=== PATIENT | male | born 1985 | race Caucasian/White ===

== ENCOUNTER 2025-06-28 13:44 | Emergency (ER) | payer MEDICAID, SELFPAY ==
[2025-06-28 13:52] VITALS: BP 139/86; PULSE 79; TEMP 36.8; O2SAT 96; BMI 35.9
--- OUTSIDE RECORDS SUMMARY | 2025-06-28 13:55 | XMS_ITS | Continuity of Care Document ---
Author Organization [place] - Rashaun Urena [facility] Torri Paris, [facility] ([facility]) Address [address] [place] [address] Assessment Encounter Date Assessment Date Assessment LastModified by Organization Details LastModified Time 06/23/2025 06/23/2025 39-year-old male with a history of epilepsy presents with left shoulder pain and arm numbness. The patient reports a previous injury leading to left acromioclavicular joint separation, complicated by C4 cervical changes. Initial therapy resulted in transient relief, indicating the need for MRI evaluation to assess underlying conditions. [email or web address] Not available 06/23/2025 12:24:50 Plan of Treatment Reminders Order Date Submit Date Provider Last Modified By Organization Details Last Modified Time Details Appointments None recorded. Lab None recorded. Referral None recorded. Procedures None recorded. Surgeries None recorded. Imaging MRI, shoulder, w/o contrast 2024 025 [email or web address] 2 [facility], [address] [place] [address], [address], 13:46:58 MRI, cervical spine, w/o contrast 2024 025 [email or web address] 2 [facility], [address] [place], [address], 13:46:58 Medication Orders None recorded. Patient TargetsNo targets recorded. Patient Instructions Encounter Date Encounter Id Patient Instructions Last Modified By Organization Details Last Modified Time 06/23/2025 [id number] - Avoid lifting heavy objects and strenuous activity with the left arm. - Use heat therapy for shoulder pain as needed. - Continue shoulder exercises and avoid overhead activities. - Take all prescribed epilepsy medications as directed and follow up with neurologist as scheduled. - Continue taking Crestor daily and maintain a diet low in fat and high in fiber. - Report any significant changes in symptoms or new events immediately. [email or web address] Not available 06/23/2025 12:24:52 During the visit , I confirmed the necessity of MRI imaging to evaluate both cervical and shoulder conditions due to current symptom persistence and incomplete relief from prior physical therapy. I addressed the patient's seizure condition, noting control under medication, with a need for continuous monitoring. We discussed potential stressors linked to his previous environment that may have influenced his health, ensuring that lifestyle modifications are ongoing. Regarding hyperlipidemia, I reiterated the importance of continuing rosuvastatin and maintaining a heart-healthy diet, alongside plans for subsequent lipid panel evaluations. The various conditions require diligent management and follow-up, for which the appropriate referrals and imaging have been outlined and will be coordinated accordingly. [email or web address] Not available 06/23/2025 12:24:53 Reason for Referral None Reported. Problems Name Problem SNOMED Code Status Onset Date Resolution Date Notes Provider Name and Address Organization Details Recorded Time Pain of left shoulder region Active 2024 Lisette hernandez [facility] 11:39:46 Cigarette smoker 53692073 Active 2024 Lisette hernandez [facility] 11:41:43 History of alcoholism 056168146 Active 2024 Lisette hernandez [facility] 11:42:14 Left cervical root neuropathy 3175416659327 9106 Active 2024 Yaw Cardona MD [address] [place] [address], [phone], [facility], L.L.CKarissa 12:17:34 Pain of left shoulder joint 7357864179053 9109 Active 2024 Yaw Cardona MD [address] [place] [address], [phone], [facility], Christie.L.C. 12:17:55 Tendinitis of left rotator cuff 8804113904927 9101 Active 2024 Yaw Cardona MD [address] [place] [address], [address], [facility], LKarissaL.CKarissa 12:18:09 Dislocation of acromioclav icular joint 176920306 Active 2024 Yaw Cardona MD [address] [place], [address], [facility], RichardL.CKarissa 12:18:34 Problem Notes None recorded. Procedures Surgical History Date Name Laterality Status Provider Name and Address Organization Details Recorded Time surgical procedure completed Lisette guerra [facility], RichardL.CKarissa 06/23/2025 11:43:22 arthroscopy of knee completed Lisette beltran [facility], L.L.CKarissa 06/23/2025 11:43:52 Carpal Tunnel Surgery completed Lisette Suarez [facility] L.L.CK[facility]issa 06/23/2025 11:44:07 Hemorrhoidectomy completed Lisette Suarez [facility] L.L.CK[facility]issa 06/23/2025 11:44:19 Imaging Results None recorded. Procedure Notes None recorded. Medical Equipment None Reported. Allergies Allergen ID Allergen Name Allergen Category Reaction Reaction Severity Criticality Documentation Date Start Date Code Code System Note Provider Name and Address Organization Details Recorded Time 05607 Keppra medicatio n Not available Not available Not available 06/23/2025 91236 7 RxNorm Lisette hernandez [facility], RichardLKarissaCKarissa 11:35:54 21699 acetamino phen / oxycodone medicatio n Not available Not available Not available 06/23/2025 79704 3 RxNorm [facility] 11:36:12 74027 oxycodone medicatio n Not available Not available Not available 06/23/2025 7804 RxNorm Lisette hernandez [facility] 11:36:22 Medications Name Sig Start Date Stop Date Status Note LastModified by Organization Details LastModified Time Epi E-Z Pen 0.3 mg/0.3 mL injection , auto-inje ctor Take by injectio n route. active for allergy to wasps and bees Not Available Not Available Not Available Lamictal 25 mg tablet Take 1 tablet twice a day by oral route. active Not Available Not Available No t Available naproxen 500 mg tablet Take 1 tablet twice a day by oral route as needed. active Not Available Not Available No t Available Robaxin 750 mg tablet Take 2 tablets 3 times a day by oral route. active Not Available Not Available No t Available Epi E-Z Pen Jr 1:2000 injection syringe Take by injectio n route. 06/23 completed allergy to bees and wasps Not Available Not Available Not Available rosuvasta tin 5 mg tablet Take 1 tablet every day by oral route. active Not Available Not Available No t Available gabapenti n 100 mg tablet Take 1 tablet 3 times a day by oral route. active Not Available Not Available No t Available tramadol active Not Available Not Avai lable Not Available Vitals Date Recorded Body height Body mass index (BMI) Body weight Oxygen saturation Oxygen saturation in Arterial blood by Pulse oximetry Heart rate Respiratory rate Body temperature Systolic And Diastolic Provider Name and Address Organization Details Last Updated DateTime 187.96 cm 35.9 kg/m2 737558. 86 g 98 % 98 % 74 /min 18 /min 97.3 [degF] 124/74 mm[Hg] Lisette Suarez [facility] 11:31:58 Social History Question Answer Notes LastModified by Organizat ion Details LastModified Time Tobacco Smoking Status Current Every Day Smoker Lisette hernandez [facility] 06/23/2025 11:41:28 At What Age Did You Start Smoking Tobacco? 16 [email or web address] Information not available 06/23/2025 How Much Tobacco Do You Smoke? 0.5 PPD [email or web address] Information not available 06/23/2025 Sex: Unknown Functional Status None recorded. Mental Status None recorded. Family History Relationship Description Onset Age of this Age Resolved Age Notes LastModified by Organization Details LastModified Time Mother Diabetes mellitus [email or web address] Not available 03/2025 12:04:57 Mother Cerebrovascu lar accident [email or web address] Not available 1 12:05:21 Mother Infundibulop elvic stenosis multicystic kidney syndrome heredi ty in women in the family [email or web address] Not available 06/23/2025 12:07:12 Father Malignant neoplasm of urinary bladder [email or web address] Not available 03/2025 12:05:38 Paternal Grandmother Malignant neoplasm of breast [email or web address] Not available 03/2025 12:07:39 Paternal Grandfather Hypertensive disorder [id number] Not available 03/2025 12:07:57 Medical History Condition Response Coronary Artery Disease N Other N Gout N Kidney Stones N Blood Diseases N Hyperthyroidism N Breast Cancer N Blood Transfusion N COPD N Depression Y Lung Disease N Hypothyroidism N Defects or Inherited Disease N Developmental or Behavioral Disorders N Breast Problem N Difficulty Swallowing N Anesthesia Complications N Meniere's disease N Anxiety Disorder N Muscle, Joint, or Bone Problems N Vision or Eye Problems N Arthritis N Polyps N Infertility N Cancer N Varicosities N Stroke N Endometriosis N Bladder or Kidney Problems N High Cholesterol N Liver Disease N Fibromyalgia N Headaches Y Kidney Disease N Allergies/Hayfever N Heart Problems N Ear or Hearing Problems N Fatigue N Hospitalizations N Thyroid Problems N GI Problems N ADD/ADHD Y Skin Problems N Eating Disorder N Anemia N Constipation N Mental Illness N Ovarian Cancer N Diabetes N Bedwetting N Seizures/Epilepsy Y Tuberculosis N Pain Y Eczema N Diverticulitis N Abuse/Domestic Violence N Asthma N Reflux/GERD N Hepatitis N Heart Disease N Pulmonary Embolism N Pre-Eclampsia N Hypertension N Chronic Ear Infections N Osteoporosis Y Chicken Pox N Autism Spectrum Disorder (ASD) N Thrombophilias N Immunizations Vaccine Type Date Status Note Provider Nam e and Address Organization Details Recorded Time Hep B, unspecified formulation 0 completed Not Available [facility] 06/23/2025 11:25:57 Td (adult), 2 Lf tetanus toxoid, preservative free, adsorbed 0 completed Not Available [facility] 06/23/2025 11:25:57 Hep B, unspecified formulation 3 completed Not Available [facility] 06/23/2025 11:25:57 Influenza, split virus, trivalent, PF 2 completed Not Available [facility] 06/23/2025 11:25:57 Influenza, split virus, trivalent, preservative 3 completed Not Available [facility] 06/23/2025 11:25:57 Td (adult), 5 Lf tetanus toxoid, preservative free, adsorbed 4 completed Not Available [facility] 06/23/2025 11:25:57 Hep A, adult 9 completed Not Available [facility] 06/23/2025 11:25:57 Influenza, split virus, quadrivalent, preservative 9 completed Not Available [facility] 06/23/2025 11:25:57 Influenza, split virus, trivalent, preservative 4 completed Not Available [facility] 06/23/2025 11:25:57 Tdap 5 completed Not Available [facility] 06/23/2025 11:25:57 Past Encounters Encounter ID Performer Location Encounter Start Date Encounter Closed Date Diagnosis/Indication Diagnosis SNOMED-CT Code Diagnosis ICD10 Code Diagnosis IMO Codes Diagnosis Note [id number] Yaw Cardona MD [facility] ([facility]) [address] [place] [address] 06/23/2025 11:21:02 06/23/2025 12:58:29 Left cervical root neuropathy 7666566986 8994215 M54.12 82101149 - Plan for MRI imaging.- Adjust treatment or surgery if needed pending MRI results.- Educate on activity limitation s. Tendinitis of left rotator cuff 9803611490 2830705 M75.82 80237667 - MRI planned for further assessment since no improvemen t after 6 weeks of PT Dislocatio n of acromioclavicular joint 199579899 S43.102A 35430322 - Document AC joint separation in imaging. - Activity restrictio ns. - Plan MRI for further assessment . Epilepsy 01916824 G40.90 9 - Ensure medication compliance . - Neurologis t follow-up. - Monitor for stress triggers. Hyperlipidemia 02147211 E78.5 - Maintain statin therapy. - Re-check lipids in future. Health Concerns Section Related Observation LastModified by Organization Detai ls LastModified Time None Recorded Concern Status LastModified by Organization Details LastModified Time None Recorded Payers Encounter Date Sequence Insurance Name Policy Number Policy Phan Covered Member ID Phan Member ID Guarantor Name 06/23/2025 1 [facility] ([place]PLAC[place] - [place]MO[place] KENDY Macias [id number] Rony Macias Notes Date Note Type Note Provider Name and Address Organization Details Recorded Time 5 text/html Annual WellnessReported by PatientSocial/Behavioral HistoryFor diet and nutrition, patient reportshigh caloric intake. For additional lifestyle factors, patient reportstobacco use(young hx of alcohol abuse). For physical activity, patient reportsrecent increase in physical activityandgood physical condition. For fracture risk, (left collar bone, leftankle).Mental Status:For depression risk, patient reportsfeels sad, empty, or tearful,sleep disturbances or insomnia,agitated,loss of energy, andhistory of depressionbut reportsno loss of interest in activities,no significant changes in weight,no feelings of worthlessness or guilt, andno thoughts of suicide.ROS as noted in the HPI The patient is a 39-year-old male presenting with left shoulder pain and a history of separation at the AC joint. He describes a specific incident leading to injury and subsequent pain, characterized as sharp, which began while participating in physically demanding activities. Initial imaging confirmed a 1 cm separation of the left shoulder's AC joint. The patient pursued physical therapy aimed at addressing suspected nerve impingement, yet reports limited and transient relief, with numbness presenting upon certain arm maneuvers. The patient completed 6 weeks of therapy and still remained symptomatic. Further complicating his musculoskeletal presentation are imaging findings suggestive of C4 apex bone anomalies, potentially implicating cervical radiculopathy. The patient expresses a need for MRI diagnostics to better visualize the cervical and shoulder regions for ongoing management, yet faces insurance hurdles. His epilepsy, linked to a childhood fall, remains under medication management, with recent seizure activity. He also manages hypercholesterolemia with dietary modification and statins, achieving stable results. - Imaging: X-ray of the left shoulder indicates separation at the AC joint, approximately 1 cm, and radiographic evidence of C4 apex bone spurs. Yaw Cardona MD [address] [place] [address], [phone], [facility], Torri 06/23/2025 12:56:35
--- OUTSIDE RECORDS SUMMARY | 2025-06-28 13:55 | XMS_ITS | Data Portability ---
Author Organization [place] - Rashaun Urena [facility] Torri Paris, [facility] Address [address] [facility] [address] [place] [address] Assessment Encounter Date Assessment Date Assessment LastModified [...] shoulder, w/o contrast 2024 025 [email or web address] 2 [facility], [address] [place] [address], [address], 13:46:58 MRI, cervical spine, w/o contrast 2024 025 [email or web address] 2 [facility], [address] [place], [address], 13:46:58 Medication Orders None recorded. Patient TargetsNo targets recorded. Patient Instructions Encounter Date Encounter Id Patient Instructions Last Modified By Organization Details Last Modified Time 06/23/2025 [id number] - Avoid lifting heavy objects and strenuous [...] left shoulder region Active [address] [facility] 11:39:46 Cigarette smoker 71156918 Active [address] [facility] 11:41:43 History of alcoholism 331618546 Active [address] [facility]issa 11:42:14 Left cervical root neuropathy 4810821104743 9106 Active 2024 Yaw Cardona MD [address] [place] [address], [phone], [facility], L.L.CKarissa 12:17:34 Pain of left shoulder joint 3997791622262 9109 Active 2024 Yaw Cardona MD [address] [place] [address], [phone], [facility] 12:17:55 Tendinitis of left rotator cuff 4095352143361 9101 Active 2024 Yaw Cardona MD [address] [place] [address], [address], [facility] 12:18:09 Dislocation of acromioclav icular joint 515438361 Active 2024 Yaw Cardona MD [address] [place], [address], [facility] 12:18:34 Problem Notes None recorded. Procedures Surgical History Date Name Laterality Status Provider Name and Address Organization Details Recorded Time surgical procedure completed Lisette guerra [facility], RichardL.CKarissa 06/23/2025 11:43:22 arthroscopy of knee completed Lisette beltran [facility] 06/23/2025 11:43:52 Carpal Tunnel Surgery completed Lisette Suarez [facility] 06/23/2025 11:44:07 Hemorrhoidectomy completed Lisette Suarez [facility] 06/23/2025 11:44:19 Imaging Results None recorded. Procedure Notes None recorded. Medical Equipment None Reported. Allergies Allergen ID Allergen Name Allergen Category Reaction Reaction Severity Criticality Documentation Date Start Date Code Code System Note Provider Name and Address Organization Details Recorded Time 71443 Keppra medicatio n Not available Not available Not available 06/23/2025 96001 [address] [facility], RichardLKarissaCKarissa 11:35:54 95100 acetamino phen / oxycodone medicatio n Not available Not available Not available 06/23/2025 [address] [facility] 11:36:12 37697 oxycodone medicatio n Not available Not available Not available 06/23/[address] [facility] 11:36:22 Medications Name Sig Start Date [...] Last Updated DateTime 187.96 cm 35.9 kg/m2 350023. 86 g 98 % 98 % 74 /min 18 /min 97.3 [degF] 124/74 mm[Hg] Lisette Suarez [facility] 11:31:58 Social History Question Answer Notes LastModified by Organizat ion Details LastModified Time Tobacco Smoking Status Current Every Day Smoker Lisette hernandez [facility] 06/23/2025 11:41:28 At What Age Did You Start Smoking Tobacco? 16 [email or web address] Information not available 06/23/2025 How Much Tobacco Do You Smoke? 0.5 PPD [email or web address] Information not available 06/23/2025 Sex: Unknown Functional Status None recorded. Mental Status None recorded. Family History Relationship Description Onset Age of this Age Resolved Age Notes LastModified by Organization Details LastModified Time Mother Diabetes mellitus [email or web address] Not available 03/2025 12:04:57 Mother Cerebrovascu lar accident [email or web address] Not available 1 12:05:21 Mother Infundibulop elvic stenosis multicystic kidney syndrome heredi ty in women in the family [email or web address] Not available 06/23/2025 12:07:12 Father Malignant neoplasm of urinary bladder [id number] Not available 03/2025 12:05:38 Paternal Grandmother Malignant neoplasm of breast [id number] Not available 03/2025 12:07:39 Paternal Grandfather Hypertensive disorder [email or web address] Not available 03/2025 12:07:57 Medical History Condition Response Coronary Artery Disease N Other N Gout N Kidney Stones N Blood Diseases N Hyperthyroidism N Breast Cancer N Blood Transfusion N Depression Y Hypothyroidism N Lung Disease N COPD N Developmental or Behavioral Disorders N Defects or Inherited Disease N Breast Problem N Difficulty Swallowing N Anesthesia Complications N Anxiety Disorder N Meniere's disease N Muscle, Joint, or Bone Problems N Vision or Eye Problems N Arthritis N Infertility N Polyps N Cancer N Stroke N Varicosities N Endometriosis N Bladder or Kidney Problems [...] B, unspecified formulation 0 completed Not Available [facility] 06/23/2025 11:25:57 Td (adult), 2 Lf tetanus toxoid, preservative free, adsorbed 0 completed Not Available [facility] 06/23/2025 11:25:57 Hep B, unspecified formulation 3 completed Not Available [facility] 06/23/2025 11:25:57 Influenza, split virus, trivalent, PF 2 completed Not Available [facility] 06/23/2025 11:25:57 Influenza, split virus, trivalent, preservative 3 completed Not Available [facility] 06/23/2025 11:25:57 Td (adult), 5 Lf tetanus toxoid, preservative free, adsorbed 4 completed Not Available [facility] 06/23/2025 11:25:57 Hep A, adult 9 completed Not Available [facility] 06/23/2025 11:25:57 Influenza, split virus, quadrivalent, preservative 9 completed Not Available [facility] 06/23/2025 11:25:57 Influenza, split virus, trivalent, preservative 4 completed Not Available [facility] 06/23/2025 11:25:57 Tdap 5 completed Not Available [facility] 06/23/2025 11:25:57 Past Encounters Encounter ID Performer Location Encounter Start Date Encounter Closed Date Diagnosis/Indication Diagnosis SNOMED-CT Code Diagnosis ICD10 Code Diagnosis IMO Codes Diagnosis Note [id number] Yaw Cardona MD [facility] ([facility]) [address] [place] [phone] 06/23/2025 11:21:02 06/23/2025 12:58:29 Left cervical root neuropathy 3331555468 9725934 M54.12 84486155 - Plan for MRI imaging.- Adjust treatment or surgery if needed pending MRI results.- Educate on activity limitation s. Tendinitis of left rotator cuff 0139155464 9771720 M75.82 26774932 - MRI planned for further assessment since no improvemen t after 6 weeks of PT Dislocatio n of acromioclavicular joint 352156864 S43.102A 61904045 - Document AC joint separation in imaging. - Activity restrictio ns. - Plan MRI for further assessment . Epilepsy 00913608 G40.90 9 - Ensure medication compliance . - Neurologis t follow-up. - Monitor for stress triggers. Hyperlipidemia 09711653 E78.5 - Maintain statin therapy. - Re-check lipids in future. Health Concerns Section Related Observation LastModified by Organization Detai ls LastModified Time None Recorded Concern Status LastModified by Organization Details LastModified Time None Recorded Advance Directives Directive None Recorded Payers Insurance Date Sequence Insurance Name Policy Number Policy Phan Covered Member ID Phan Member ID Guarantor Name 06/23/2025 1 [facility] ([place] - [place] KENDY Macias [id number] Rony Macias Notes Date Note Type Note [...] C4 apex bone spurs. Yaw Cardona MD [address] [place] [address], [phone], [facility], Torri 06/23/2025 12:56:35
--- NOTE | 2025-06-28 14:02 | XRR_ITS ---
PROCEDURE INFORMATION: Exam: XR Left Shoulder Exam date and time: 06/28/2025 2:22 PM Age: 39 years old Clinical indication: Pain; Shoulder; Left; Additional info: Pain x2 weeks prev lt clavicle FX TECHNIQUE: Imaging protocol: Radiologic exam of the left shoulder. Views: 2 or more views. COMPARISON: CR (NECK, ) 06/28/2025 2:18 PM FINDINGS: Bones/joints: There is a chronic healed mid clavicular fracture. No acute fracture seen. Widening of the acromioclavicular joint is noted measuring up to 10 mm. Soft tissues: Normal. XR/XR shoulder LT min 2V* 15113 IMPRESSION: 1. No acute findings. Widening of the AC joint. 2. Old clavicular fracture.
--- NOTE | 2025-06-28 14:16 | XRR_ITS ---
PROCEDURE INFORMATION: Exam: XR Cervical Spine Exam date and time: 06/28/2025 2:18 PM Age: 39 years old Clinical indication: Cervicalgia and neck pain TECHNIQUE: Imaging protocol: Radiologic exam of the cervical spine. Views: 2 or 3 views. COMPARISON: No relevant prior studies available. FINDINGS: Bones/joints: Normal. No acute fracture. Normal alignment. Soft tissues: Unremarkable. XR/XR cervical spine 3V* 56180 IMPRESSION: No acute findings.
[2025-06-28 14:38] VITALS: RESP 18; O2SAT 98
[2025-06-28] MEDS: oxyCODONE-APAP 10-325 mg Tablet 1 TAB PO ×2 (14:38→16:38)
[2025-06-28] MEDS: orphenadrine 30 mg/mL Inj 2 mL 60 MG IM (14:40)
--- NOTE | 2025-06-28 14:40 | W.ED.EXTPRO ---
Documented by User: JAIRO Summers 06/28/25 16:41 HPI - Extremity Problem General: Chief complaint: Extremity Problem,Nontraumatic Stated complaint: L side of neck down into shoulder and ribs Time Seen by Provider: 06/28/25 14:01 Source: patient Mode of arrival: ambulatory Limitations: no limitations History of Present Illness: Patient is a 39-year-old male who presents to the emergency department complaining of left shoulder pain for greater than a month. He states that he has relocated here from [place], and is currently switching providers. 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 States that he has undergone physical therapy with no relief, and had an MRI scheduled of the left shoulder but due to him moving he was unable to get this done. Denies any new trauma, he states he is on a weight limit in terms of usage with the left arm, he has not gotten any relief from his tramadol and gabapentin at home. He also notes the pain radiates into the thoracic region as well as up the neck, and thinks that he has spurs in his neck. He does note radiation of pain and numbness down the left arm, no visual changes, paralysis, or any other symptoms of concern reported at this time. He also states he has been told he might have thoracic outlet syndrome as well. His vitals are stable at this time, reporting of pain 04/26. MD Complaint: joint pain Onset (ago): month(s) Pain Consistency: constant Location: left and upper extremity (shoulder) Radiation: proximal and distal Exacerbating factors: range of motion Associated symptoms: Deny chest pain, fever(s) or rash Related Data Home Medications ?Medication ?Instructions ?Recorded ?Confirmed clotrimazole 1 % topical cream 1 applic topical BID 06/28/25 06/28/25 epinephrine 0.3 mg/0.3 mL 0.3 mg IM PRN PRN Anaphylaxis 06/28/25 06/28/25 injection, auto-injector gabapentin 100 mg capsule 100 mg PO BID 06/28/25 06/28/25 ibuprofen 200 mg tablet (Advil) 800 mg PO Q6H PRN Fever Or Pain 06/28/25 06/28/25 naloxone 4 mg/actuation nasal See Rx Instructions .Route .COMPLEX 06/28/25 06/28/25 spray (Narcan) naproxen sodium 220 mg tablet 440 mg PO Q12H PRN Fever Or Pain 06/28/25 06/28/25 rosuvastatin 5 mg tablet 5 mg PO DAILY 06/28/25 06/28/25 tramadol 50 mg tablet 50 mg PO BID 06/28/25 06/28/25 Previous Rx's ?Medication ?Instructions ?Recorded methocarbamol 750 mg tablet 750 mg PO Q8H 5 days #15 tabs 06/28/25 prednisone 10 mg tablets in a dose 10 mg PO DIRECTED #21 ea 06/28/25 pack Allergies Allergy/AdvReac Type Severity Reaction Status Date / Time levetiracetam (From [facility]) Allergy Unknown Verified 06/28/25 14:01 Review of Systems General: Reports: 10 or more systems reviewed and unremarkable except in HPI and below Const: Denies: fever(s) or chills Card: Denies: chest pain Resp: Denies: dyspnea or productive cough GI: Denies: abdominal pain, nausea, vomiting or diarrhea : Denies: flank pain Musc: Reports: neck pain, back pain, extremity pain, joint pain and limited range of motion; Denies: extremity swelling, joint swelling, joint redness, joint warmth or muscle weakness Skin/Breast: Denies: rash Neuro: Reports: numbness in extremities; Denies: headache(s) or weakness in extremities Physical Exam Const: COMMON NORMALS: no acute distress, patient oriented x3, no limitations, healthy appearing, alert and well nourished HENMT: COMMON NORMALS: normocephalic and atraumatic HEAD & SCALP: normocephalic and atraumatic Neck/C-Spine: COMMON NORMALS: full ROM, supple and no meningeal signs Resp: COMMON NORMALS: normal respiratory effort, No use of accessory muscles and clear to auscultation bilaterally AUSCULTATION: clear to auscultation bilaterally Cardio: COMMON NORMALS: regular rate and regular rhythm RATE: regular rate RHYTHM: regular rhythm Extremity: NARRATIVE EXTREMITY EXAM: Coaptation brace to the left shoulder. Endorsing diffuse tenderness to palpation of the shoulder joint. Tender to palpation to C-spine as well as left paracervical muscles. Range of motion is intact about the left shoulder, endorsing pain with flexion/extension as well as abduction. Distal radial pulse palpable, strength intact distally, no sensory changes. Neuro: COMMON NORMALS: patient oriented x3, moves all extremities, no focal motor deficits and no sensory deficits noted SENSORIUM/ORIENTATION: Yes alert MENINGEAL SIGNS: Yes no meningeal signs Skin: COMMON NORMALS: no rashes or lesions noted GENERAL SKIN EXAM: no rashes or lesions noted Course Vital Signs: Vital signs: Vital Signs Temperature 98.3 F 06/28/25 13:52 Pulse Rate 74 06/28/25 14:45 Respiratory Rate 18 06/28/25 14:38 Blood Pressure 134/72 06/28/25 14:45 Pulse Oximetry 97 06/28/25 14:45 Oxygen Delivery Me thod Room Air 06/28/25 14:45 MDM - Extremity (Nontraumatic) Medical Decision Making This patient presents with coaptation brace, stating he had been diagnosed with AC joint separation and that he is just having adequate pain control at home with his tramadol and gabapentin. He also has relocated here and did not receive MRI with previous provider, and states he wants an MRI here. Informed him we cannot do this, we repeat x-ray showing the AC joint widening and pain control here however we will refer him to Ortho/spine for further evaluation. No new issues with the x-ray, C-spine also negative as he was reporting some C-spine pain. The neurovascular exam is unremarkable. Lab Data Radiology Impressions Shoulder X-Ray 06/28/25 14:02 IMPRESSION: 1. No acute findings. Widening of the AC joint. 2. Old clavicular fracture. Cervical Spine X-Ray 06/28/25 14:16 IMPRESSION: No acute findings. All radiology interpretation(s) finalized by discharge Discharge Plan Discharge Patient Disposition: Home Clinical Impression: Acromioclavicular joint separation Qualifiers: Encounter type: subsequent encounter Laterality: left Qualified Code(s): S43.102D - Unspecified dislocation of left acromioclavicular joint, subsequent encounter Condition: Stable Prescriptions: New prednisone 10 mg tablets,dose pack 10 mg PO DIRECTED Qty: 21 0RF Rx Instructions: see taper instructions 6 tablets on day 1, 5 tablets on day 2, 4 tablets on day 3, 3 tablets on day 4, 2 tablets on day 5, and 1 tablet a day 6. P.o. methocarbamol 750 mg tablet 750 mg PO Q8H 5 Days Qty: 15 0RF No Action tramadol 50 mg tablet 50 mg PO BID gabapentin 100 mg capsule 100 mg PO BID epinephrine 0.3 mg/0.3 mL auto-injector 0.3 mg IM PRN PRN (Reason: Anaphylaxis) clotrimazole 1 % cream 1 applic TOPICAL BID rosuvastatin 5 mg tablet 5 mg PO DAILY naloxone [Narcan] 4 mg/actuation spray,non-aerosol See Rx Instructions .ROUTE .COMPLEX Rx Instructions: CALL 911. Use one full spray in one nostril one time. Repeat every 2-3 minutes as needed if no or minimal response. naproxen sodium 220 mg Tablet 440 mg PO Q12H PRN (Reason: Fever Or Pain) ibuprofen [Advil] 200 mg Tablet 800 mg PO Q6H PRN (Reason: Fever Or Pain) Discharge Orders: Discharge ED (Routine); Ordered 06/28/25 Ordered By: Frank Tuttle Patient Instructions: Opioid Safety, Pain Management, Patient Portal & Eris Instructions Activity Restrictions/Additional Instructions: AC Joint Separation Discharge Diagnosis: You have an acromioclavicular (AC) joint separation confirmed by X-ray. This is a shoulder injury commonly managed without surgery unless there is significant instability or high functional demands. Activity and Immobilization: - Wear a shoulder sling for comfort as needed, typically for up to two weeks. Remove the sling periodically to perform gentle elbow, wrist, and hand movements to prevent stiffness. - Avoid lifting, pushing, or pulling with the affected arm until cleared by orthopedics. - Do not participate in contact sports or strenuous activities until further evaluation. Pain Management: - Continue taking tramadol and gabapentin as prescribed for pain control. - Start methocarbamol (Robaxin) as directed for muscle spasm. - Begin the prednisone taper as prescribed. - Use ice packs on the shoulder for 15?20 minutes every few hours as needed for pain and swelling. - Acetaminophen may be used for additional pain relief if needed. Nonsteroidal anti-inflammatory drugs (NSAIDs) can be considered if not contraindicated. Follow-Up and Referral: - You will be referred to orthopedics for further evaluation. MRI is not routinely indicated unless there is concern for additional injuries or instability. - Physical therapy may be recommended after initial immobilization to restore shoulder range of motion and strength. - Return to normal activities is expected once pain resolves and shoulder function is restored. Warning Signs: Contact your healthcare provider or seek emergency care if you experience: - Increasing pain, swelling, or redness at the shoulder - Numbness, tingling, or weakness in the arm or hand - Fever or signs of infection Medication Instructions: - Take all medications exactly as prescribed. Do not exceed recommended doses. - Report any side effects such as rash, stomach upset, or mood changes. Additional Instructions: - Keep all follow-up appointments. - Bring this discharge summary and medication list to your orthopedic visit. If you have any questions or concerns, contact your healthcare provider. Print Language: Egyptian Coding Level of Care Code ED Safety And Health Consultant for [facility] Documented by User: Carl Morrison DO 06/28/25 16:42 HPI - Extremity Problem General: Chief complaint: Extremity Problem,Nontraumatic Stated complaint: L side of neck down into shoulder and ribs Time Seen by Provider: 06/28/25 14:01 Related Data Home Medications ?Medication ?Instructions ?Recorded ?Confirmed clotrimazole 1 % topical cream 1 applic topical BID 06/28/25 06/28/25 epinephrine 0.3 mg/0.3 mL 0.3 mg IM PRN PRN Anaphylaxis 06/28/25 06/28/25 injection, auto-injector gabapentin 100 mg capsule 100 mg PO BID 06/28/25 06/28/25 ibuprofen 200 mg tablet (Advil) 800 mg PO Q6H PRN Fever Or Pain 06/28/25 06/28/25 naloxone 4 mg/actuation nasal See Rx Instructions .Route .COMPLEX 06/28/25 06/28/25 spray (Narcan) naproxen sodium 220 mg tablet 440 mg PO Q12H PRN Fever Or Pain 06/28/25 06/28/25 rosuvastatin 5 mg tablet 5 mg PO DAILY 06/28/25 06/28/25 tramadol 50 mg tablet 50 mg PO BID 06/28/25 06/28/25 Previous Rx's ?Medication ?Instructions ?Recorded methocarbamol 750 mg tablet 750 mg PO Q8H 5 days #15 tabs 06/28/25 prednisone 10 mg tablets in a dose 10 mg PO DIRECTED #21 ea 06/28/25 pack Allergies Allergy/AdvReac Type Severity Reaction Status Date / Time levetiracetam (From [facility]) Allergy Unknown Verified 06/28/25 14:01 Course Vital Signs: Vital signs: Vital Signs Temperature 98.3 F 06/28/25 13:52 Pulse Rate 74 06/28/25 14:45 Respiratory Rate 18 06/28/25 14:38 Blood Pressure 134/72 06/28/25 14:45 Pulse Oximetry 97 06/28/25 14:45 Oxygen Delivery Me thod Room Air 06/28/25 14:45 MDM - Extremity (Nontraumatic) Medical Decision Making This patient presents with coaptation brace, stating he had been diagnosed with AC joint separation and that he is just having adequate pain control at home with his tramadol and gabapentin. He also has relocated here and did not receive MRI with previous provider, and states he wants an MRI here. Informed him we cannot do this, we repeat x-ray showing the AC joint widening and pain control here however we will refer him to Ortho/spine for further evaluation. No new issues with the x-ray, C-spine also negative as he was reporting some C-spine pain. The neurovascular exam is unremarkable. Chart reviewed and patient discussed with midlevel. Agree with assessment and plan. Lab Data Radiology Impressions Shoulder X-Ray 06/28/25 14:02 IMPRESSION: 1. No acute findings. Widening of the AC joint. 2. Old clavicular fracture. Cervical Spine X-Ray 06/28/25 14:16 IMPRESSION: No acute findings. Discharge Plan Discharge Patient Disposition: Home Clinical Impression: Acromioclavicular joint separation Qualifiers: Encounter type: subsequent encounter Laterality: left Qualified Code(s): S43.102D - Unspecified dislocation of left acromioclavicular joint, subsequent encounter Condition: Stable Prescriptions: New prednisone 10 mg tablets,dose pack 10 mg PO DIRECTED Qty: 21 0RF Rx Instructions: see taper instructions 6 tablets on day 1, 5 tablets on day 2, 4 tablets on day 3, 3 tablets on day 4, 2 tablets on day 5, and 1 tablet a day 6. P.o. methocarbamol 750 mg tablet 750 mg PO Q8H 5 Days Qty: 15 0RF No Action tramadol 50 mg tablet 50 mg PO BID gabapentin 100 mg capsule 100 mg PO BID epinephrine 0.3 mg/0.3 mL auto-injector 0.3 mg IM PRN PRN (Reason: Anaphylaxis) clotrimazole 1 % cream 1 applic TOPICAL BID rosuvastatin 5 mg tablet 5 mg PO DAILY naloxone [Narcan] 4 mg/actuation spray,non-aerosol See Rx Instructions .ROUTE .COMPLEX Rx Instructions: CALL 911. Use one full spray in one nostril one time. Repeat every 2-3 minutes as needed if no or minimal response. naproxen sodium 220 mg Tablet 440 mg PO Q12H PRN (Reason: Fever Or Pain) ibuprofen [Advil] 200 mg Tablet 800 mg PO Q6H PRN (Reason: Fever Or Pain) Discharge Orders: Discharge ED (Routine); Ordered 06/28/25 Ordered By: Frank Tuttle Patient Instructions: Opioid Safety, Pain Management, Patient Portal & Eris Instructions Activity Restrictions/Additional Instructions: AC Joint Separation Discharge Diagnosis: You have an acromioclavicular (AC) joint separation confirmed by X-ray. This is a shoulder injury commonly managed without surgery unless there is significant instability or high functional demands. Activity and Immobilization: - Wear a shoulder sling for comfort as needed, typically for up to two weeks. Remove the sling periodically to perform gentle elbow, wrist, and hand movements to prevent stiffness. - Avoid lifting, pushing, or pulling with the affected arm until cleared by orthopedics. - Do not participate in contact sports or strenuous activities until further evaluation. Pain Management: - Continue taking tramadol and gabapentin as prescribed for pain control. - Start methocarbamol (Robaxin) as directed for muscle spasm. - Begin the prednisone taper as prescribed. - Use ice packs on the shoulder for 15?20 minutes every few hours as needed for pain and swelling. - Acetaminophen may be used for additional pain relief if needed. Nonsteroidal anti-inflammatory drugs (NSAIDs) can be considered if not contraindicated. Follow-Up and Referral: - You will be referred to orthopedics for further evaluation. MRI is not routinely indicated unless there is concern for additional injuries or instability. - Physical therapy may be recommended after initial immobilization to restore shoulder range of motion and strength. - Return to normal activities is expected once pain resolves and shoulder function is restored. Warning Signs: Contact your healthcare provider or seek emergency care if you experience: - Increasing pain, swelling, or redness at the shoulder - Numbness, tingling, or weakness in the arm or hand - Fever or signs of infection Medication Instructions: - Take all medications exactly as prescribed. Do not exceed recommended doses. - Report any side effects such as rash, stomach upset, or mood changes. Additional Instructions: - Keep all follow-up appointments. - Bring this discharge summary and medication list to your orthopedic visit. If you have any questions or concerns, contact your healthcare provider. Print Language: Egyptian Coding Level of Care Code ED Safety And Health Consultant for Herb Villegas
[2025-06-28 14:45] VITALS: BP 134/72; PULSE 74; O2SAT 97
[2025-06-28 16:41] VITALS: BP 143/67; PULSE 71; O2SAT 98
--- NOTE | 2025-06-30 16:03 | PC.NURSE ---
Ortho referral sent.
== END 2025-06-28 16:42 | disposition home or self-care (01) ==
PROVIDERS: Emergency Provider Physician Assistant
DX: S43.102D Unspecified dislocation of left acromioclavicular joint, subsequent encounter (principal); X58.XXXD Exposure to other specified factors, subsequent encounter
CPT/HCPCS: 72040; 73030; 96372; 99284; J1100; J1885; J2360; J9999

== ENCOUNTER 2025-07-16 10:56 | Outpatient (CLI) | payer MEDICAID, SELFPAY ==
--- NOTE | 2025-07-16 11:07 | MRR_ITS ---
PROCEDURE INFORMATION: Exam: MR Left Upper Extremity Joint Without Contrast; Shoulder Exam date and time: 07/16/2025 11:45 AM Age: 39 years old Clinical indication: Left shoulder pain, injured pulling on rope in March and felt sharp pain in shoulder. Tendinitis of left rotator cuff TECHNIQUE: Imaging protocol: Magnetic resonance imaging of the left upper extremity without contrast. Exam focused on the shoulder. COMPARISON: CR (CHEST, ) 06/28/2025 2:22 PM FINDINGS: Bones/joints: Possible sprain of the AC joint capsule. Correlate for tenderness. No acute fracture. No significant osteoarthritis. Glenoid labrum: The glenoid labrum is intact. Bursae: Trace fluid in the subacromial/subdeltoid bursa. Supraspinatus tendon: Mild tendinosis of the supraspinatus tendon. Infraspinatus tendon: Mild tendinosis of the infraspinatus tendon. Subscapularis tendon: The subscapularis tendon is intact. Teres minor tendon: The teres minor tendon is intact. Tendon of biceps brachii: Tenosynovitis involving the long head biceps tendon. Glenohumeral ligaments: The middle glenohumeral ligament is intact. The superior glenohumeral ligament is intact. The inferior glenohumeral ligament is intact. Soft tissues: Acute strain of the supraspinatus muscle. MR/MR shoulder LT wo con* [id number] IMPRESSION: 1. Tenosynovitis involving the long head biceps tendon. 2. Acute strain of the supraspinatus muscle. 3. Possible sprain of the AC joint capsule. Correlate for tenderness. 4. Mild tendinosis of the supraspinatus tendon. 5. Mild tendinosis of the infraspinatus tendon. 6. Trace fluid in the subacromial/subdeltoid bursa.
--- NOTE | 2025-07-16 11:08 | MR_ITS ---
WS: [id number] MRI CERVICAL SPINE NONCONTRAST TECHNIQUE: Sagittal T1, T2 and STIR imaging. Axial T2, gradient, and fiesta imaging. CLINICAL INFORMATION: LEFT CERVICAL RADICULOPATHY COMPARISON: None. FINDINGS: Straightening of the normal cervical lordosis. Cord signal is normal. No high- grade central canal narrowing. Cord signal appears normal. C2-C3: Normal. C3-C4: Normal. C4-C5: Mild facet arthropathy. Spinal canal and foramen are patent. C5-C6: Mild facet arthropathy. Spinal canal and foramen are patent. C6-C7: Minimal disc bulging. Spinal canal and foramen are patent. C7-T1: Normal. Visualized brain stem structures: Normal. Prevertebral soft tissues: Normal. MR/MR cervical spin wo con* [id number] IMPRESSION: 1. Straightening of the normal cervical lordosis. Cord signal is normal. 2. No significant central canal stenosis. 3. Mild facet arthropathy C4-C5 and C5-C6. 4. No significant spinal canal or foraminal narrowing.
== END 2025-07-16 10:57 | disposition home or self-care (01) ==
PROVIDERS: PCP Family Medicine; Visit Provider Family Medicine
DX: M75.82 Other shoulder lesions, left shoulder (principal); M54.12 Radiculopathy, cervical region; M47.892 Other spondylosis, cervical region; M40.292 Other kyphosis, cervical region; M65.812 Other synovitis and tenosynovitis, left shoulder; S46.012A Strain of muscle(s) and tendon(s) of the rotator cuff of left shoulder, initial encounter; X58.XXXA Exposure to other specified factors, initial encounter; M75.32 Calcific tendinitis of left shoulder
CPT/HCPCS: 72141; 73221